=== PATIENT | female | born 1995 | race Two or more races ===

== ENCOUNTER 2024-03-13 23:30 | Emergency (ER) | payer MEDICAID, SELFPAY ==
[2024-03-13 23:31] VITALS: PULSE 94; RESP 20; O2SAT 97
[2024-03-13 23:42] VITALS: BP 116/83; PULSE 91; RESP 18; TEMP 36.6; O2SAT 99; BMI 35.7
--- NOTE | 2024-03-13 23:49 | XR_ITS ---
Examination: Abdomen sonogram, Limited Date and time of exam: March 14, 2024 0100 hours INDICATIONS: Abdominal pain beginning 3 days ago Technique: Real-time dooley scale transabdominal sonographic images of the upper abdomen obtained. Findings: Numerous gallstones Gallbladder wall 0.2 cm Common bile duct 0.2 cm Pancreatic head 3.3 cm Liver 17.1 cm no focal liver lesions Normal hepatopedal portal venous flow Patent IVC IMPRESSION: Cholelithiasis, negative for cholecystitis
--- NOTE | 2024-03-13 23:50 | PD.EDRME ---
Rapid Medical Screening Exam RME Arrival date/time: 03/13/24 23:30 28F with history of gallstones presents to ED with RUQ/epigastric pain and N/V. Patient had outpatient gen surg appt but missed it because her daughter was sick. Chief Complaint: Abdominal Pain Vital signs: Vital Signs Temperature 98 F 03/13/24 23:42 Pulse Rate 91 03/13/24 23:42 Respiratory Rate 18 03/13/24 23:42 Blood Pressure 116/83 03/13/24 23:42 Pulse Oximetry (%) 99 03/13/24 23:42 Oxygen Delivery Method Room Air 03/13/24 23:42
[2024-03-13] MEDS: ONDANSETRON ODT 4 MG TABRAP PO (23:55)
[2024-03-14 00:35] LABS: Basophils % (Auto) 0 % (0-2.5); Eosinophils # (Auto) 0.1 Thou/mm3 (0.0-0.5); Eosinophils % (Auto) 1 % (0-10); Hematocrit 35.6 % (36.0-46.0); Hemoglobin 11.8 g/dL (12.0-16.0); Immature Granulocytes % (Auto) 0 % (0-0); Immature Granulocytes Auto 0.03 Thou/mm3 (0.00-0.00); Lymphocytes # (Auto) 2.4 Thou/mm3 (1.0-4.8); Lymphocytes % (Auto) 18 % (10-50); Mean Corpuscular HGB Conc 33.1 g/dl (31.0-37.0); Mean Corpuscular Hemoglobin 27.2 pg (25.0-35.0); Mean Corpuscular Volume 82 fL (80-100); Monocytes # (Auto) 0.6 Thou/mm3 (0.0-0.8); Monocytes % (Auto) 5 % (0-12); Neutrophils # (Auto) 9.7 Thou/mm3 (1.8-7.7); Neutrophils % (Auto) 76 % (37-80); Nucleated Red Blood Cell % 0 /100 WBC (0); Platelet Count 265 Thou/mm3 (140-440); RDW Standard Deviation 44.9 fL (36.4-46.3); Red Blood Count 4.34 Miln/mm3 (4.00-5.20); White Blood Count 12.9 Thou/mm3 (3.6-11.0)
[2024-03-14 00:54] LABS: Alanine Aminotransferase 63 U/L (10-49); Albumin, Serum 4.3 gm/dL (3.5-5.0); Albumin/Globulin Ratio 1.5 (1.2-2.2); Alkaline Phosphatase 124 U/L (46-116); Anion Gap 3 (7-16); Aspartate Amino Transferase 83 U/L (0-34); BUN/Creatinine Ratio 23 Ratio (12-20); Bilirubin,Total 0.5 mg/dL (0.3-1.2); Blood Urea Nitrogen 16 mg/dL (9-23); Calcium 9.8 mg/dL (8.3-10.6); Calcium (Corrected) 9.8 mg/dL (8.5-10.1); Carbon Dioxide 30.6 mMol/L (20.0-31.0); Chloride 104 mMol/L (98-107); Creatinine (Component) 0.7 mg/dL (0.6-1.3); Estimated Creatinine Clearance 151.6 mL/min (>60); Globulin 2.9 gm/dL (2.3-3.5); Glucose 95 mg/dL (74-106); Lipase 38 U/L (12-53); Osmolality,Calculated 276 (275-295); Potassium 3.8 mMol/L (3.4-5.1); Sodium 138 mMol/L (136-145); Total Protein 7.2 gm/dL (5.7-8.2); eGFR > 60 See Note
--- NOTE | 2024-03-14 02:04 | PD.EDABDPN ---
ED Abdominal Pain RME/HPI General Chief Complaint: Abdominal Pain Stated complaint: UPPER ABDOMINAL PAIN, RIGHT SHOULDER PAIN Arrival date/time: 03/13/24 23:30 RME / HPI RME / HPI narrative: 03/13/24 23:30 28F with history of gallstones presents to ED with RUQ/epigastric pain and N/V. Patient had outpatient gen surg appt but missed it because her daughter was sick. ----- Dr. Zamudio?s Main ED Evaluation: 28yo female with a history of gallstones BIBA from home presents to the ED for complaints of right chest and epigastric pain. Patient states she was at home when she developed sudden right-sided chest pain and epigastric pain. She reports associated N/V and shortness of breath. She denies any fever, chills, UTI symptoms or any other associated symptoms. She states she's had this pain twice before. No known allergies. Patient states she had an appointment with her PCP yesterday, but missed it due to her daughter being sick. Related Data Home Medications ?Medication ?Instructions ?Recorded ?Confirmed Vitamin * 1 tab PO QDAY #0 tabs 05/24/13 04/08/22 Previous Rx's ?Medication ?Instructions ?Recorded IBU 800 mg tablet (ibuprofen) 800 mg PO Q6H PRN pain #30 tabs 01/21/24 ondansetron 4 mg disintegrating 4 mg PO Q8H PRN nausea and 01/21/24 tablet vomiting #10 tabs Allergies Allergy/AdvReac Type Severity Reaction Status Date / Time No Known Allergies Allergy Unknown Verified 01/21/24 06:47 Review of Systems Review of Systems Systems Reviewed: All systems reviewed, normal except as documented Past Medical History Past Medical History NEUROLOGIC: Negative Neurological Disorders or Seizures CARDIAC: Negative Cardiac Disorders or Congestive Heart Failure RESPIRATORY: Negative Chronic Obstructive Pulmonary Disease (COPD) GASTROINTESTINAL: Positive Gastrointestinal Disorders and Obesity; Negative Hepatitis or Colorectal Cancer GENITOURINARY: Positive Genitourinary Disorders; Negative Renal Disease or Prostate Cancer REPRODUCTIVE: Negative Breast Cancer or Testicular Cancer MUSCULOSKELETAL: Negative Musculoskeletal Disorders or Bone Cancer ENDOCRINE: Positive Endocrine Disorders (1 hour glucose elevated. A1c okay); Negative Diabetes Mellitus Type 1 or Diabetes Mellitus Type 2 HEMATOLOGIC: Positive Blood Disorders and Anemia; Negative Leukemia, Hemophilia, Thalassemia, Sickle Cell Disease or Clotting Problems PSYCHO/SOCIAL: Positive Anxiety OTHER HISTORY: Negative Hospitalization, Autoimmune Disease, Down Syndrome, Developmental Delay, Shingles, Falls, Blood Transfusions, Blood Transfusion Reaction, Anesthesia Reactions, Organ Transplant, Chemotherapy, Radiation Therapy, Hyperbaric Therapy, MRSA, VRSA, Vancomycin-Resistant Enterococci, Human Immunodeficiency Virus (HIV), Chicken Pox, Measles, Mumps, Rubella ([place]ian Measles), Pertussis, Clostridium Difficile, Breast Cancer, Cervical Cancer, Colorectal Cancer, Lung Cancer, Ovarian Cancer, Prostate Cancer or Testicular Cancer Family History FAMILY HISTORY: Positive Family Cardiac Disorders; Negative Family Psychiatric Problems, Family Respiratory Disorders, Family Gastrointestinal Problems, Family Cancer, Family Surgery or Family Anesthesia Reaction Surgical History SURGICAL: Negative Section or Organ Transplant Social History SMOKING STATUS: Never smoker ED Exam Narrative Physical exam: GENERAL APPEARANCE: alert and oriented x 4, well-developed, well-nourished, no acute distress VITALS: All vitals were reviewed and the pulse ox is 99% on room air, which is normal according to my interpretation. HEENT: Normocephalic, atraumatic; pupils equal, round, reactive to light; EOMI; mucous membranes pink, moist; oropharynx clear NECK: Supple LUNGS: CTABL; no wheezes, no rales, no rhonchi HEART: Regular rate, regular rhythm; normal S1, S2; no murmurs ABDOMEN: non distended; normal BS; soft, mild diffuse tenderness, no guarding, no rebound; no masses, no organomegaly, no hernia BACK: no CVA tenderness EXTREMITIES: atraumatic; no edema NEUROLOGIC: awake; alert and oriented x4; cranial nerves II-XII grossly intact; no focal sensory or motor deficits PSYCHIATRIC: appropriate mood and affect SKIN: warm, dry, normal color; no rashes Course Quality Measures none Orders Category Date Time Status US gall bladder Stat Exams 03/13/24 23:49 Taken CBC Stat Lab 03/13/24 23:49 Completed CMP [Comprehensive Metabolic Panel] Stat Lab 03/13/24 23:49 Completed Lipase Stat Lab 03/13/24 23:49 Completed Ondansetron Odt [Zofran Odt] Med 03/13/24 23:49 Discontinued 4 mg PO X1 ONE Vital Signs Vital signs: Vital Signs Temperature 98 F 03/13/24 23:42 Pulse Rate 91 03/13/24 23:42 Respiratory Rate 18 03/13/24 23:42 Blood Pressure 116/83 03/13/24 23:42 Pulse Oximetry (%) 99 03/13/24 23:42 Oxygen Delivery Method Room Air 03/13/24 23:42 Abdominal Pain MDM Patient data External records reviewed:: [facility] previous records (Per chart review, patient was seen here on 01/21/24 for gallstones.) Clinical information provided by:: patient Social determinants that could affect healthcare access:: none Patient has the following chronic illnesses:: gallstones How is presenting disease/condition affected by chronic disease/condition?: caused by Evaluation data The following diagnostics were reviewed and interpreted by me:: lab results and radiology exam(s) Lab and/or radiology exams considered but not ordered:: none Interpretation Summary: WBC count is elevated at 12.9, LFTs are elevated, Lipase is normal, according to my interpretation. ----- [facility] Preliminary Report Draft Patient: CHRISTIANO CONDE Record#: [id number] Birthdate: 1995 Age/Sex: 28 / F Location: [facility] Attending Dr: Ordering Physician: Date of Service: Procedure(s): Accession Number(s): cc: ~ Right upper quadrant abdominal ultrasound. March 14, 2024 at 0100 hours Clinical history: Right upper quadrant/epigastric pain. Technique: Grayscale and color flow images of the right upper quadrant are provided. Hepatic and portal veins were also imaged with color flow images. Findings: The liver is mildly enlarged, measuring 17 cm and demonstrates heterogeneous echotexture. The portal vein is patent and demonstrates hepatopetal flow. No intrahepatic biliary ductal dilatation. Multiple calculi are noted within the gallbladder, without evidence of gallbladder wall thickening or pericholecystic fluid. Sonographic London sign is negative as per the technologist's note. The common bile duct is normal in caliber at 2 mm. The pancreas is hyperechoic, which could be due to fatty infiltration. The inferior vena cava is patent. Impression: Cholelithiasis without sonographic evidence of acute cholecystitis or biliary obstruction. Mild hepatomegaly with heterogeneous echotexture of the liver, likely related to parenchymal disease. Report Electronically Signed By: Iftikhar Valdez 03/14/2024 2:39:40 AM [EST] Medications / Prescriptions Medications or Prescriptions considered but not ordered:: none Medication administrations:: Medication Administration History Discontinued Medications Ondansetron HCl (Ondansetron Odt 4 Mg Tabrap) 4 mg PO X1 ONE; Protocol Stop: 03/13/24 23:50 Last Admin: 03/13/24 23:55 Dose: 4 mg Documented By: BRENT see above Consultations Consultation(s) initiated? (list below): No Diagnosis Differential diagnosis abdominal pain: diverticulitis and other (gastritis, cholelithiasis, cholecystitis) Most likely diagnosis given after review of the tests above:: see below Admission Indicated Admission indicated?: not indicated Admission Request Was there a request for admission?: No Disposition Plan Disposition Plan: Discharge Discharge Attestation Discharge Attestation: The patient and all family members were given an opportunity to ask questions and understood the discharge instructions. Discharge instructions specifically effects, indications for sooner follow up or return to the emergency department, and the expected course of current diagnosis. Patient condition: Stable Discharge Plan Plan Patient Disposition: HOME (Self Care) Disposition Comment: Stable for discharge Patient condition on transfer: Stable Prescriptions/Referrals Prescriptions/Med Rec: No Action Vitamin * 1 EACH tablet 1 tab PO QDAY Qty: 0 ibuprofen [IBU] 800 mg tablet 800 mg PO Q6H PRN (Reason: pain) Qty: 30 0RF ondansetron 4 mg tablet,disintegrating 4 mg PO Q8H PRN (Reason: nausea and vomiting) Qty: 10 0RF Referrals: Darnell Patel MD [Primary Care Provider] - In 1 week Elizabeth David MD [Physician] - In 1 week Problem List Clinical Impression: Cholelithiasis Patient/Caregiver Discharge Instructions Discharge Activity: activity as tolerated Diet Instructions: You should avoid fatty or greasy foods for the next several days. Education Materials: What Are Gallstones, Discharge Instructions for ..., ED Gallstones with Biliary Colic Additional Instructions: You should follow-up with Dr. David in her office within the next week or so. Please give her office a call in the morning. If you have any worsening please return to the ER right away Otherwise he should follow-up with your primary care doctor within the next several days Print Language: Indonesian Stand Alone Forms: [employer] Award Info., Patient Portal Info Letter
--- NOTE | 2024-03-14 02:14 | PC.NURSE ---
Assume care for this 28 year female with chief c/o of RUQ pain that started around 2200hr's. Pt reports that she was recently diagnosed with gall stones approx 1 month ago and was told to follow up with her PMD, but was unable to due to her new baby getting sick. On assessment there is active BS to all 4 quadrants, Pt reports that she has been passing gas, and there is tenderness to the RUQ region. Pt is a GCS of 15, A&O 4, at bedside. Pt was given update on plan of care.
--- NOTE | 2024-03-14 02:40 | PRELIM_ITS ---
Right upper quadrant abdominal ultrasound. March 14, 2024 at 0100 hours Clinical history: Right up per quadrant/epigastric pain. Technique: Grayscale and color flow images of the right upper quadrant are provided. Hepatic and portal veins were also imaged with color flow images. Findings:The liver is mildly enlarged, measuring 17 cm and demonstrates heterogeneous echotexture. The portal vein is michaels nt and demonstrates hepatopetal flow. No intrahepatic biliary ductal dilatation. Multiple calculi are noted within the gallbladder, without evidence of gallbladder wall thickening or pericholecystic flu id. Sonographic London sign is negative as per the technologist's note. The common bile duct is edwige l in caliber at 2 mm. The pancreas is hyperechoic, which could be due to fatty infiltration. The infe rior vena cava is patent.Impression:Cholelithiasis without sonographic evidence of acute cholecystiti s or biliary obstruction. Mild hepatomegaly with heterogeneous echotexture of the liver, likely relat ed to parenchymal disease. Report Electronically Signed By: Iftikhar Valdez 03/14/2024 2:39:40 AM [EST]
[2024-03-14 03:52] VITALS: BP 101/64; PULSE 94; RESP 18; TEMP 36.8; O2SAT 98
== END 2024-03-14 04:05 | disposition home or self-care (01) ==
PROVIDERS: Physician Assistant; Emergency Provider Emergency Medicine; PCP Family Medicine
DX: K80.20 Calculus of gallbladder without cholecystitis without obstruction (principal)
CPT/HCPCS: 36415; 76705; 80053; 81025; 83690; 85025; 99284; Q0162

== ENCOUNTER 2024-05-06 06:04 | Emergency (ER) | payer MEDICAID, SELFPAY ==
[2024-05-06 06:06] VITALS: BMI 45.7
[2024-05-06 06:09] VITALS: BP 110/77; PULSE 85; RESP 18; TEMP 36.8; O2SAT 98
--- NOTE | 2024-05-06 06:26 | XR_ITS ---
Examination: Abdomen sonogram, Limited Date and time of exam: 25 0708 hrs. Indications: Abdominal pain beginning one year ago. History cholelithiasis Technique: Real-time dooley scale transabdominal sonographic images of the upper abdomen obtained. Findings: Multiple gallstones are, gallbladder wall 0.46 cm, no gallbladder wall edema Common bile duct 0.3 cm pericaval abdomen exam Liver 16.2 cm fatty infiltration no focal liver lesions Normal hepatopedal portal venous flow Patent IVC Impression: Cholelithiasis Gallbladder wall is thickened 0.46 cm, consider HIDA scan or MRCP to exclude cholecystitis Mild hepatomegaly fatty liver
--- NOTE | 2024-05-06 06:26 | PD.EDRME ---
Rapid Medical Screening Exam RME Arrival date/time: 05/06/24 06:04 28-year-old female with history of gallstones presents emergency department complains of upper abdominal pain right flank pain Chief Complaint: Abdominal Pain Time Seen by Provider: 05/06/24 06:22 Vital signs: Vital Signs Temperature 98.2 F 05/06/24 06:09 Pulse Rate 85 05/06/24 06:09 Respiratory Rate 18 05/06/24 06:09 Blood Pressure 110/77 05/06/24 06:09 Pulse Oximetry (%) 98 05/06/24 06:09 Oxygen Delivery Method Room Air 05/06/24 06:09
[2024-05-06] MEDS: METOCLOPRAMIDE 5 MG TABLET 10 MG PO (06:51)
[2024-05-06] MEDS: HYDROcodone/APAP 5/325 TABLET 1 TAB PO (06:52)
[2024-05-06 07:06] LABS: Basophils % (Auto) 0 % (0-2.5); Eosinophils # (Auto) 0.1 Thou/mm3 (0.0-0.5); Eosinophils % (Auto) 1 % (0-10); Hemoglobin 12.4 g/dL (12.0-16.0); Immature Granulocytes % (Auto) 0 % (0-0); Immature Granulocytes Auto 0.02 Thou/mm3 (0.00-0.00); Lymphocytes # (Auto) 2.2 Thou/mm3 (1.0-4.8); Lymphocytes % (Auto) 27 % (10-50); Mean Corpuscular HGB Conc 33.5 g/dl (31.0-37.0); Mean Corpuscular Hemoglobin 27.2 pg (25.0-35.0); Mean Corpuscular Volume 81 fL (80-100); Monocytes # (Auto) 0.6 Thou/mm3 (0.0-0.8); Monocytes % (Auto) 7 % (0-12); Neutrophils # (Auto) 5.2 Thou/mm3 (1.8-7.7); Neutrophils % (Auto) 64 % (37-80); Nucleated Red Blood Cell % 0 /100 WBC (0); Platelet Count 241 Thou/mm3 (140-440); Red Blood Count 4.56 Miln/mm3 (4.00-5.20); White Blood Count 8.1 Thou/mm3 (3.6-11.0)
[2024-05-06 07:12] LABS: Collection Type, Urine Clean Catch
--- NOTE | 2024-05-06 07:24 | PD.EDABDPN ---
ED Abdominal Pain RME/HPI General Chief Complaint: Abdominal Pain Stated complaint: FLANK PAIN Time seen by provider: 05/06/24 06:22 Arrival date/time: 05/06/24 06:04 RME / HPI RME / HPI narrative: 05/06/24 06:04 28-year-old female with history of gallstones presents emergency department complains of upper abdominal pain right flank pain DR. JONES MAIN ED EVALUATION: 28 year old female with past medical history significant for gallstones presents to the Emergency Department with complaint of right upper quadrant pain today. Pain is described as aching and rated mild to moderate in severity. No radiation reported. Patient denies any of the following: fevers, chills, nausea, vomiting, diarrhea, dysuria, or any other symptoms at this time. Related Data Home Medications ?Medication ?Instructions ?Recorded ?Confirmed No Known Home Medications 05/06/24 05/06/24 Allergies Allergy/AdvReac Type Severity Reaction Status Date / Time No Known Allergies Allergy Unknown Verified 05/06/24 07:38 Review of Systems Review of Systems Systems Reviewed: All systems reviewed, normal except as documented Narrative Review of Systems: GEN: No fever, no chills, no weight loss EYES: No discharge, no visual changes, no pain HEENT: No ear pain, no congestion, no sore throat PULM: No shortness of breath, no cough, no congestion CV: No chest pain, no dyspnea on exertion, no palpitations GI: No nausea, no vomiting, no diarrhea, + right upper quadrant pain, no constipation : No frequency, no urgency and no dysuria MUSC/SKEL: No joint pain, no back pain SKIN: No rash PSYCH: No hallucinations, no depression HEME/LYMPH: No easy bleeding or bruising tendencies NEURO: No weakness, no headache Past Medical History Past Medical History NEUROLOGIC: Negative Neurological Disorders or Seizures CARDIAC: Negative Cardiac Disorders or Congestive Heart Failure RESPIRATORY: Negative Chronic Obstructive Pulmonary Disease (COPD) GASTROINTESTINAL: Positive Gastrointestinal Disorders, Gall Bladder Disease (Gall stones) and Obesity; Negative Hepatitis or Colorectal Cancer GENITOURINARY: Positive Genitourinary Disorders (kidney stones); Negative Renal Disease or Prostate Cancer REPRODUCTIVE: Positive Previous Pregnancies; Negative Breast Cancer or Testicular Cancer MUSCULOSKELETAL: Negative Musculoskeletal Disorders or Bone Cancer ENDOCRINE: Positive Endocrine Disorders; Negative Diabetes Mellitus Type 1 or Diabetes Mellitus Type 2 HEMATOLOGIC: Positive Blood Disorders and Anemia; Negative Leukemia, Hemophilia, Thalassemia, Sickle Cell Disease or Clotting Problems PSYCHO/SOCIAL: Positive Anxiety OTHER HISTORY: Negative Hospitalization, Autoimmune Disease, Down Syndrome, Developmental Delay, Shingles, Falls, Blood Transfusions, Blood Transfusion Reaction, Anesthesia Reactions, Organ Transplant, Chemotherapy, Radiation Therapy, Hyperbaric Therapy, MRSA, VRSA, Vancomycin-Resistant Enterococci, Human Immunodeficiency Virus (HIV), Chicken Pox, Measles, Mumps, Rubella ([place]ian Measles), Pertussis, Clostridium Difficile, Breast Cancer, Cervical Cancer, Colorectal Cancer, Lung Cancer, Ovarian Cancer, Prostate Cancer or Testicular Cancer Family History FAMILY HISTORY: Positive Family Cardiac Disorders; Negative Family Psychiatric Problems, Family Respiratory Disorders, Family Gastrointestinal Problems, Family Cancer, Family Surgery or Family Anesthesia Reaction Surgical History SURGICAL: Positive Section; Negative Organ Transplant Social History SMOKING STATUS: Never smoker SUBSTANCE USE: does not use ALCOHOL: Never ED Exam Narrative Physical exam: GENERAL APPEARANCE: Well hydrated, well nourished, in no acute distress. No jaundice. VITALS: All vitals were reviewed and the pulse ox is 98% on room air which is normal according to my interpretation. HEENT: Normocephalic, atramatic, EOMI, EACs are patent. There is no bulge or retraction. Throat without erythema or exudate. Moist oromucosa. No jaundice NECK: Supple, no JVD or bruits. CARDIOVASCULAR: Heart regular without S3-S4 or murmur. No rubs or gallops. LUNGS/CHEST: Clear to auscultation bilaterally. No rales, rhonchi, or wheezing. Normal inspection. ABDOMEN: There is right upper quadrant tenderness, no rebound tenderness and no guarding. Normal bowel sounds. No pulsatile masses. No incarcerated hernia. EXTREMITIES: No edema, clubbing, or cyanosis. Intact CSM. Normal inspection and palpation. SKIN: Warm and dry without rashes. Normal inspection. MUSCULOSKELETAL: No gross deformity, full ROM all extremities. Normal inspection. NEURO: Alert and oriented x3. Cranial nerves II through XII grossly intact. There are no other motor or sensory deficits noted. PSYCHIATRIC: Normal mood and affect. No psychosis. Course Quality Measures none Orders Category Date Time Status US gall bladder Stat Exams 05/06/24 06:26 Completed CBC Stat Lab 05/06/24 06:53 Completed Comprehensive Metabolic Panel Stat Lab 05/06/24 06:53 Completed HCG Qualitative,Urine Stat Lab 05/06/24 07:02 Completed Lipase Stat Lab 05/06/24 06:53 Completed UA, C/S IF [Urinalysis, C/S if Indicated] Stat Lab 05/06/24 07:02 Completed HYDROcodone*/APAP 5/325 [Whiting 5/325] Med 05/06/24 06:26 Discontinued 1 tab PO X1 ONE Metoclopramide [Reglan] Med 05/06/24 06:26 Discontinued 10 mg PO X1 ONE Reevaluation(s) Reevaluation #1: At this time, patient is pain free. Patient remains clinically stable throughout the emergency department visit. Re-assessment at the time of disposition demonstrates that the patient is in no acute distress. We reviewed all the results, analysis, and treatment plans. Patient is amenable to discharge. Strict return precautions were outlined. Patient was discharged in stable condition. Time: 11:53 Vital Signs Vital signs: Vital Signs Temperature 98.2 F 05/06/24 06:09 Pulse Rate 85 05/06/24 06:09 Respiratory Rate 18 05/06/24 06:09 Blood Pressure 110/77 05/06/24 06:09 Pulse Oximetry (%) 98 05/06/24 06:09 Oxygen Delivery Method Room Air 05/06/24 06:09 Abdominal Pain MDM MDM Narrative MDM Narrative:: I, Dary Oh, am scribing for and in the presence of Dr. Jones. CBC unremarkable. CMP and lipase are negative. UA negative. test is negative. Ultrasound resulted. Radiologist mention gallstones and gallbladder wall slightly thickened at 0.46 cm. However clinically speaking the patient has no cholecystitis. In fact at this time which is 11:54 AM, the patient is pain-free and wants to go home. Patient data External records reviewed:: [facility] previous records (Reviewed last ED visit dated 03/14/24 discharged with the following: Cholelithiasis) Clinical information provided by:: patient Social determinants that could affect healthcare access:: none Patient has the following chronic illnesses:: gallstones How is presenting disease/condition affected by chronic disease/condition?: caused by Evaluation data The following diagnostics were reviewed and interpreted by me:: lab results and radiology exam(s) Lab and/or radiology exams considered but not ordered:: none Interpretation Summary: Procedure(s): US gall bladder Accession Number(s): [id number] cc: Myrna ([employer]CTION EXECUTIVE),[employer]; Darnell Patel MD; Shaun Valladares MD~ Examination: Abdomen sonogram, Limited Date and time of exam: 25 0708 hrs. Indications: Abdominal pain beginning one year ago. History cholelithiasis Technique: Real-time dooley scale transabdominal sonographic images of the upper abdomen obtained. Findings: Multiple gallstones are, gallbladder wall 0.46 cm, no gallbladder wall edema Common bile duct 0.3 cm pericaval abdomen exam Liver 16.2 cm fatty infiltration no focal liver lesions Normal hepatopedal portal venous flow Patent IVC Impression: Cholelithiasis Gallbladder wall is thickened 0.46 cm, consider HIDA scan or MRCP to exclude cholecystitis Mild hepatomegaly fatty liver Dictated By: Shaun Valladares MD Medications / Prescriptions Medications or Prescriptions considered but not ordered:: none Medication administrations:: Medication Administration History Discontinued Medications Hydrocodone Bitart/Acetaminophen (Hydrocodone/Apap 5/325 Tablet) 1 tab PO X1 ONE Stop: 05/06/24 06:27 Last Admin: 05/06/24 06:52 Dose: 1 tab Documented By: LACEY Metoclopramide HCl (Metoclopramide 5 Mg Tablet) 10 mg PO X1 ONE Stop: 05/06/24 06:27 Last Admin: 05/06/24 06:51 Dose: 10 mg Documented By: LACEY see above Consultations Consultation(s) initiated? (list below): No Diagnosis Differential diagnosis abdominal pain: abdominal pain, gastroenteritis and pancreatitis Most likely diagnosis given after review of the tests above:: Cholelithiasis Admission Indicated Admission indicated?: not indicated Admission Request Was there a request for admission?: No Disposition Plan Disposition Plan: Discharge Discharge Attestation Discharge Attestation: The patient and all family members were given an opportunity to ask questions and understood the discharge instructions. Discharge instructions specifically effects, indications for sooner follow up or return to the emergency department, and the expected course of current diagnosis. Patient condition: Stable Discharge Plan Plan Patient Disposition: HOME (Self Care) Disposition Comment: Stable for DC home Prescriptions/Referrals Prescriptions/Med Rec: No Action No Known Home Medications Referrals: Darnell Patel MD [Primary Care Provider] - In 1 week Problem List Clinical Impression: Abdominal pain, Cholelithiasis Patient/Caregiver Discharge Instructions Education Materials: Abdominal Pain, ED Gallstones with Biliary Colic Additional Instructions: Liquid diet for 24 hours. Avoid fatty foods. Follow-up with your medical doctor in 72 hours for recheck and further care. Return the nearest ER if condition worsens or if new symptoms develop especially fever. Print Language: Nepalese Stand Alone Forms: [employer] Award Info., Patient Portal Info Letter
[2024-05-06 07:28] LABS: Alanine Aminotransferase 19 U/L (10-49); Albumin, Serum 4.5 gm/dL (3.5-5.0); Albumin/Globulin Ratio 1.4 (1.2-2.2); Alkaline Phosphatase 103 U/L (46-116); Anion Gap 6 (7-16); Aspartate Amino Transferase 12 U/L (0-34); BUN/Creatinine Ratio 17 Ratio (12-20); Bilirubin,Total 0.3 mg/dL (0.3-1.2); Blood Urea Nitrogen 12 mg/dL (9-23); Calcium 9.4 mg/dL (8.3-10.6); Calcium (Corrected) 9.4 mg/dL (8.5-10.1); Carbon Dioxide 27.8 mMol/L (20.0-31.0); Chloride 102 mMol/L (98-107); Creatinine (Component) 0.7 mg/dL (0.6-1.3); Estimated Creatinine Clearance 141.2 mL/min (>60); Globulin 3.2 gm/dL (2.3-3.5); Glucose 77 mg/dL (74-106); Lipase 33 U/L (12-53); Osmolality,Calculated 270 (275-295); Sodium 136 mMol/L (136-145); Total Protein 7.7 gm/dL (5.7-8.2); eGFR > 60 See Note
[2024-05-06 07:31] VITALS: BP 114/67; PULSE 86; RESP 18; TEMP 37.1; O2SAT 100
[2024-05-06 07:51] LABS: Bacteria,Urine Rare; Bilirubin,Urine Negative (Negative); Blood,Urine Trace (Negative); Clarity,Urine Hazy (Clear/Hazy); Color,Urine Lt-Yellow (Lt Yel-Yel); Culture Indicated,Urine Not Indicated; Glucose, Urine Negative (Negative); Ketones,Urine Negative (Negative); Nitrite,Urine Negative (Negative); Protein,Urine Trace (Neg - Trace); RBC,Urine 3 /hpf (0-3); Specific Gravity,Urine 1.024 (1.001-1.035); Squamous Epithelial Cell,Urine 25 /hpf (0-5); Urobilinogen,Urine Negative mg/dL (0.0-1.0); WBC,Urine 2 /hpf (0-5)
[2024-05-06 07:52] LABS: HCG Qualitative,Urine Negative; Leukocyte Esterase,Urine Trace (Negative)
[2024-05-06 09:34] VITALS: BP 108/74; PULSE 67; RESP 18; TEMP 36.6; O2SAT 100
== END 2024-05-06 12:10 | disposition home or self-care (01) ==
PROVIDERS: Nurse Practitioner Primary Care; Emergency Provider Emergency Medicine; PCP Family Medicine
DX: K80.20 Calculus of gallbladder without cholecystitis without obstruction (principal)
CPT/HCPCS: 36415; 76705; 80053; 81001; 81025; 83690; 85025; 99284; A9270

== ENCOUNTER 2024-06-02 09:28 | Emergency (ER) | payer MEDICAID, SELFPAY ==
[2024-06-02 09:39] VITALS: BP 111/74; PULSE 81; RESP 20; TEMP 36.8; O2SAT 100; BMI 42.5
--- NOTE | 2024-06-02 09:49 | XR_ITS ---
Examination: Abdomen sonogram, Limited Date and time of exam: June 02, 2024 1038 hrs. Indications: Onset abdominal pain today Technique: Real-time dooley scale transabdominal sonographic images of the upper abdomen obtained. Findings: Multiple gallstones Normal gallbladder wall Normal common bile duct 0.3 cm Pancreatic head 2.8 cm Liver 16.7 cm fatty infiltration no focal liver lesions Normal hepatopedal portal venous oh Patent IVC Impression: Cholelithiasis, negative for cholecystitis Fatty liver
--- NOTE | 2024-06-02 09:52 | EDRME_ITS ---
Rapid Medical Screening Exam RME Arrival date/time: 06/02/24 09:28 This is a 29-year-old female that comes in with complaints of epigastric pain. Patient has been diagnosed with gallstones in the past. Patient states it hurts like the gallstone pain did. Patient supposed to have them removed by a surgeon soon. Patient denies any past medical history. I have greeted and performed a focused initial assessment of this patient. Initial appropriate labs ordered at this time. A comprehensive ED assessment an d evaluation of the patient and analysis of all test and completion of medical decision making process will be conducted by additional ED provider. Chief Complaint: Abdominal Pain Time Seen by Provider: 06/02/24 09:40 Vital signs: Vital Signs Temperature 98.3 F 06/02/24 09:39 Pulse Rate 81 06/02/24 09:39 Respiratory Rate 20 06/02/24 09:39 Blood Pressure 111/74 06/02/24 09:39 Pulse Oximetry (%) 100 06/02/24 09:39 Oxygen Delivery Method Room Air 06/02/24 09:39
[2024-06-02 10:01] LABS: Collection Type, Urine Voided
[2024-06-02 10:06] LABS: Basophils % (Auto) 0 % (0-2.5); Eosinophils # (Auto) 0.1 Thou/mm3 (0.0-0.5); Eosinophils % (Auto) 1 % (0-10); Hematocrit 37.3 % (36.0-46.0); Hemoglobin 12.5 g/dL (12.0-16.0); Immature Granulocytes % (Auto) 0 % (0-0); Immature Granulocytes Auto 0.03 Thou/mm3 (0.00-0.00); Lymphocytes # (Auto) 2.8 Thou/mm3 (1.0-4.8); Lymphocytes % (Auto) 30 % (10-50); Mean Corpuscular HGB Conc 33.5 g/dl (31.0-37.0); Mean Corpuscular Hemoglobin 27.7 pg (25.0-35.0); Mean Corpuscular Volume 83 fL (80-100); Monocytes # (Auto) 0.5 Thou/mm3 (0.0-0.8); Monocytes % (Auto) 5 % (0-12); Neutrophils % (Auto) 63 % (37-80); Nucleated Red Blood Cell % 0 /100 WBC (0); Platelet Count 226 Thou/mm3 (140-440); RDW Standard Deviation 43.3 fL (36.4-46.3); Red Blood Count 4.52 Miln/mm3 (4.00-5.20); White Blood Count 9.5 Thou/mm3 (3.6-11.0)
[2024-06-02 10:19] LABS: Alanine Aminotransferase 23 U/L (10-49); Albumin, Serum 4.3 gm/dL (3.5-5.0); Albumin/Globulin Ratio 1.4 (1.2-2.2); Alkaline Phosphatase 111 U/L (46-116); Anion Gap 6 (7-16); Aspartate Amino Transferase 24 U/L (0-34); BUN/Creatinine Ratio 22 Ratio (12-20); Bilirubin,Total 0.5 mg/dL (0.3-1.2); Blood Urea Nitrogen 13 mg/dL (9-23); Calcium 9.2 mg/dL (8.3-10.6); Calcium (Corrected) 9.2 mg/dL (8.5-10.1); Carbon Dioxide 27.7 mMol/L (20.0-31.0); Chloride 106 mMol/L (98-107); Creatinine (Component) 0.6 mg/dL (0.6-1.3); Estimated Creatinine Clearance 156.3 mL/min (>60); Glucose 86 mg/dL (74-106); Lipase 35 U/L (12-53); Osmolality,Calculated 278 (275-295); Potassium 3.5 mMol/L (3.4-5.1); Sodium 140 mMol/L (136-145); Total Protein 7.3 gm/dL (5.7-8.2); eGFR > 60 See Note
[2024-06-02 10:31] LABS: HCG Qualitative,Urine Negative
[2024-06-02 11:02] LABS: Bacteria,Urine Rare; Bilirubin,Urine Negative (Negative); Blood,Urine 1+ (Negative); Clarity,Urine Turbid (Clear/Hazy); Color,Urine Yellow (Lt Yel-Yel); Culture Indicated,Urine Not Indicated; Glucose, Urine Negative (Negative); Ketones,Urine Negative (Negative); Leukocyte Esterase,Urine Negative (Negative); Nitrite,Urine Negative (Negative); Protein,Urine Trace (Neg - Trace); RBC,Urine 5 /hpf (0-3); Specific Gravity,Urine 1.035 (1.001-1.035); Squamous Epithelial Cell,Urine 11 /hpf (0-5); Urobilinogen,Urine Negative mg/dL (0.0-1.0); WBC,Urine 2 /hpf (0-5)
--- NOTE | 2024-06-02 12:53 | PRELIM_ITS ---
Limited ultrasound abdomen. June 02, 2024 1048 hours Clinical history: Gallstones Technique: Grayscale and color flow images of the abdomen are provided. Hepatic and portal veins were also imaged with color flow images. Comparison: March 14, 2024 Findings: There is mild fatty infiltration of the liver. No intrahepatic biliary ductal dilatation. The main portal vein and hepatic veins are patent. There are multiple small gallbladder calculi without wall thickening or pericholecystic fluid is demonstrated. The common bile duct is normal in caliber at 3 mm. No free fluid is demonstrated on the submitted images. The pancreas is unremarkable to the extent visualized. Impression: Cholelithiasis without evidence of acute cholecystitis or biliary obstruction. Report Electronically Signed By: Doug Vanegas 06/02/2024 12:52:38 PM [EST]
--- NOTE | 2024-06-02 13:17 | PD.EDABDPN ---
ED Abdominal Pain RME/HPI General Chief Complaint: Abdominal Pain Stated complaint: PAIN FROM GALLSTONES Time seen by provider: 06/02/24 09:40 Arrival date/time: 06/02/24 09:28 RME / HPI RME / HPI narrative: 29-year-old female with no significant medical history except for gallstone that comes in with complaints of epigastric pain. Patient has been diagnosed with gallstones in the past. Patient states it hurts like the gallstone pain did. Described as a sharp pain, severity moderate. Patient supposed to have them removed by a surgeon soon. Denies any fever denies any vomiting. Related Data Previous Rx's ?Medication ?Instructions ?Recorded tramadol 37.5 mg-acetaminophen 325 1 tab PO Q8H PRN pain #15 tabs 06/02/24 mg tablet Allergies Allergy/AdvReac Type Severity Reaction Status Date / Time No Known Allergies Allergy Unknown Verified 06/02/24 09:32 Review of Systems Review of Systems Narrative Review of Systems: Review of system reviewed and within normal limits except mentioned in HPI ED Exam Narrative Physical exam: VITAL SIGNS: Reviewed. GENERAL APPEARANCE: Alert and interactive, follows commands, no acute distress, HEAD AND FACE: Non-traumatic. ENT: PERRL, pink conjunctivitis, eyelid no trauma, Mucous membrane moist. NECK: Supple, nontender, no nuchal rigidity. CHEST: No tenderness, no crepitus, no paradoxical movement, no retractions. LUNGS: Clear, well ventilated, symmetric, no rales, no wheezing, no ronchi, no stridor, good breath sounds bilaterally. HEART: Regular rate, regular rhythm, no murmur, no gallops. ABDOMEN: Soft, positive bowel sounds, nondistended, no guarding, epigastric tenderness, no rebound, no masses, RECTAL: Deferred. GENITAL: Deferred. NEUROLOGICAL: Gross motor function intact sensory function intact, Appropriate for age. MUSCULOSKELETAL: low back nontender, full range of motion. EXTREMITIES: Nontender, full range of motion. SKIN: Color pink, dry, no rash, no lacerations, no abrasions, no contusions. LYMPHATICS: Deferred. Course Quality Measures none Orders Category Date Time Status US abdomen limited Stat Exams 06/02/24 09:49 Completed CBC Stat Lab 06/02/24 09:55 Completed Comprehensive Metabolic Panel Stat Lab 06/02/24 09:55 Completed HCG Qualitative,Urine Stat Lab 06/02/24 09:51 Completed Lipase Stat Lab 06/02/24 09:55 Completed Urinalysis, C/S if Indicated Stat Lab 06/02/24 09:51 Completed Vital Signs Vital signs: Vital Signs Temperature 98.3 F 06/02/24 09:39 Pulse Rate 81 06/02/24 09:39 Respiratory Rate 20 06/02/24 09:39 Blood Pressure 111/74 06/02/24 09:39 Pulse Oximetry (%) 100 06/02/24 09:39 Oxygen Delivery Method Room Air 06/02/24 09:39 Abdominal Pain MDM MDM Narrative MDM Narrative:: 29-year-old female with no significant medical history except for gallstone that comes in with complaints of epigastric pain. Patient has been diagnosed with gallstones in the past. Patient states it hurts like the gallstone pain did. Described as a sharp pain, severity moderate. Patient supposed to have them removed by a surgeon soon. Denies any fever denies any vomiting. Patient's workup today all came back unremarkable including no leukocytosis total bili is normal LFTs are normal. Ultrasound of the gallbladder showed multiple gallstones with no sign of acute cholecystitis. Results was discussed with the patient since patient eloped from the emergency room Patient data External records reviewed:: None Clinical information provided by:: patient Social determinants that could affect healthcare access:: none Patient has the following chronic illnesses:: None How is presenting disease/condition affected by chronic disease/condition?: no chronic disease Evaluation data The following diagnostics were reviewed and interpreted by me:: lab results and radiology exam(s) Lab and/or radiology exams considered but not ordered:: Elopement Interpretation Summary: His workup all came back unremarkable. No leukocytosis LFTs are normal ultrasound gallbladder showed cholelithiasis with no sign of acute cholecystitis Medications / Prescriptions Medications or Prescriptions considered but not ordered:: None Medication administrations:: None Consultations Consultation(s) initiated? (list below): No Diagnosis Differential diagnosis abdominal pain: abdominal pain and pancreatitis Most likely diagnosis given after review of the tests above:: Gallstone Admission Indicated Admission indicated?: not indicated Explain why admission is indicated or not indicated:: None Admission Request Was there a request for admission?: No Disposition Plan Disposition Plan: other (specify) (Elopement) Discharge Plan Plan Patient Disposition: Elopement Disposition Comment: FROM LOBBY Prescriptions/Referrals Prescriptions/Med Rec: No Action tramadol-acetaminophen 37.5-325 mg tablet 1 tab PO Q8H PRN (Reason: pain) Qty: 15 0RF Referrals: Darnell Patel MD [Primary Care Provider] - In 1 week Problem List Clinical Impression: Cholelithiasis Patient/Caregiver Discharge Instructions Print Language: Malaysian
== END 2024-06-02 17:20 | disposition left against medical advice (07) ==
LOC: SERX 10:04
PROVIDERS: Nurse Practitioner Family; Emergency Provider Emergency Medicine; PCP Family Medicine
DX: K80.20 Calculus of gallbladder without cholecystitis without obstruction (principal); Z53.29 Procedure and treatment not carried out because of patient's decision for other reasons
CPT/HCPCS: 36415; 76705; 80053; 81001; 81025; 83690; 85025; 99281

== ENCOUNTER 2024-06-02 17:29 | Emergency (ER) | payer MEDICAID, SELFPAY ==
[2024-06-02 17:45] VITALS: BP 108/74; PULSE 82; RESP 19; TEMP 37.1; O2SAT 99; BMI 40.0
--- NOTE | 2024-06-02 18:29 | EDNOTE_ITS ---
ED Abdominal Pain RME/HPI General Chief Complaint: Abdominal Pain Stated complaint: ABD PAIN (HERE EARLIER ELOPED FROM [facility]) Time seen by provider: 06/02/24 18:14 Arrival date/time: 06/02/24 17:29 29-year-old female who was evaluated this morning but eloped is returning with complaints of worsening abdominal pain. Patient was found to have cholelithiasis without cholecystitis and she denies fever chills shortness of breath chest pain nausea vomiting weakness or fatigue. Patient also denies taking any medications for symptoms and denies chance of Limitations: no limitations Related Data Previous Rx's ?Medication ?Instructions ?Recorded tramadol 37.5 mg-acetaminophen 325 1 tab PO Q8H PRN pa in #15 tabs 06/02/24 mg tablet Allergies Allergy/AdvReac Type Severity Reaction Status Date / Time No Known Allergies Allergy Unknown Verified 06/02/24 09:32 Review of Systems Constitutional Constitutional: Denies chills, Denies fever(s) and Denies headache(s) ENT Ears, Nose, Mouth, and Throat: Denies headache(s) Cardiovascular Cardiovascular: Denies chest pain, Denies dyspnea and Denies syncope Respiratory Respiratory: Denies cough and Denies dyspnea Gastrointestinal Gastrointestinal: Reports abdominal pain, Denies loose stools, Denies melena and Denies vomiting Genitourinary Genitourinary: Denies abnormal menses and Denies dysuria Musculoskeletal Musculoskeletal: Denies back pain and Denies myalgias Integumentary/Breasts Skin/Breast: Denies rash and Denies wounds Neurologic Neurologic: Denies headache(s) and Denies syncope Hematologic/Lymphatic Hematologic/Lymphatic: Denies easy bleeding and Denies easy bruising Past Medical History Past Medical History NEUROLOGIC: Negative Neurological Disorders or Seizures CARDIAC: Negative Cardiac Disorders or Congestive Heart Failure RESPIRATORY: Negative Chronic Obstructive Pulmonary Disease (COPD) GASTROINTESTINAL: Positive Gastrointestinal Disorders, Gall Bladder Disease (Gall stones) and Obesity; Negative Hepatitis or Colorectal Cancer GENITOURINARY: Positive Genitourinary Disorders (kidney stones); Negative Renal Disease or Prostate Cancer REPRODUCTIVE: Positive Previous Pregnancies; Negative Breast Cancer or Testicular Cancer MUSCULOSKELETAL: Negative Musculoskeletal Disorders or Bone Cancer ENDOCRINE: Positive Endocrine Disorders; Negative Diabetes Mellitus Type 1 or Diabetes Mellitus Type 2 HEMATOLOGIC: Positive Blood Disorders and Anemia; Negative Leukemia, Hemophilia, Thalassemia, Sickle Cell Disease or Clotting Problems PSYCHO/SOCIAL: Positive Anxiety OTHER HISTORY: Negative Hospitalization, Autoimmune Disease, Down Syndrome, Developmental Delay, Shingles, Falls, Blood Transfusions, Blood Transfusion Reaction, Anesthesia Reactions, Organ Transplant, Chemotherapy, Radiation Therapy, Hyperbaric Therapy, MRSA, VRSA, Vancomycin-Resistant Enterococci, Human Immunodeficiency Virus (HIV), Chicken Pox, Measles, Mumps, Rubella ([place] Measles), Pertussis, Clostridium Difficile, Breast Cancer, Cervical Cancer, [place] rectal Cancer, Lung Cancer, Ovarian Cancer, Prostate Cancer or Testicular Cancer Family History FAMILY HISTORY: Positive Family Cardiac Disorders; Negative Family Psychiatric Problems, Family Respiratory Disorders, Family Gastrointestinal Problems, Family Cancer, Family Surgery or Family Anesthesia Reaction Surgical History SURGICAL: Positive Section; Negative Organ Transplant Social History SMOKING STATUS: Never smoker SUBSTANCE USE: does not use ED Exam General Limitations: Present no limitations General appearance: Present alert and in no apparent distress Chest Chest inspection: Present normal inspection and symmetric chest wall rise Respiratory Respiratory exam: Present normal lung sounds bilaterally Cardiovascular Cardiovascular exam: Present regular rate, normal rhythm and normal heart sounds Abdominal Exam Abdominal exam: Present soft, tenderness and normal bowel sounds; Absent guarding, rebound or rigidity Abdominal tenderness: Present RUQ and epigastrium Extremities Exam Extremities exam: Present normal inspection and full ROM Back Exam Back exam: Present normal inspection and full ROM Neurological Exam Neurological exam: Present alert, oriented X3 and CN II-XII intact Psychiatric Psychiatric exam: Present normal affect and normal mood Skin Skin exam: Present warm, dry, intact and normal color Course Quality Measures none Orders Category Date Time Status Ketorolac Inj [Toradol Inj] Med 06/02/24 18:29 Once 30 mg IM X1 ONE Vital Signs Vital signs: Vital Signs Temperature 98.7 F 06/02/24 17:45 Pulse Rate 82 06/02/24 17:45 Respiratory Rate 19 06/02/24 17:45 Blood Pressure 108/74 06/02/24 17:45 Pulse Oximetry (%) 99 06/02/24 17:45 Oxygen Delivery Method Room Air 06/02/24 17:45 Abdominal Pain MDM Patient data External records reviewed:: None Clinical information provided by:: patient Social determinants that could affect healthcare access:: none Patient has the following chronic illnesses:: none How is presenting disease/condition affected by chronic disease/condition?: no chronic disease Evaluation data The following diagnostics were reviewed and interpreted by me:: lab results and radiology exam(s) Lab and/or radiology exams considered but not ordered:: none Interpretation Summary: Cholelithiasis without cholecystitis Medications / Prescriptions Medications or Prescriptions considered but not ordered:: None Medication administrations:: Toradol Consultations Consultation(s) initiated? (list below): No Diagnosis Differential diagnosis abdominal pain: abdominal pain, acute appendicitis, diverticulitis and gastroenteritis Most likely diagnosis given after review of the tests above:: Cholelithiasis Admission Indicated Admission indicated?: not indicated Admission Request Was there a request for admission?: No Disposition Plan Disposition Plan: Discharge Discharge Attestation Discharge Attestation: The patient and all family members were given an opportunity to ask questions and understood the discharge instructions. Discharge instructions specifically effects, indications for sooner follow up or return to the emergency department, and the expected course of current diagnosis. Patient condition: Stable Discharge Plan Plan Patient Disposition: HOME (Self Care) Prescriptions/Referrals Prescriptions/Med Rec: New tramadol-acetaminophen 37.5-325 mg tablet 1 tab PO Q8H PRN (Reason: pain) Qty: 15 0RF Problem List Clinical Impression: Cholelithiasis Patient/Caregiver Discharge Instructions Discharge Activity: activity as tolerated Education Materials: What Are Gallstones, Treating Gallstones Additional Instructions: Hydrate well take medication as needed for pain follow-up with your primary care provider in 24 to 48 hours for referral to surgeon. Return to the emergency department if symptoms should worsen Print Language: Romansh Stand Alone Forms: [facility] Award Info., Patient Portal Info Letter
[2024-06-02] MEDS: KETOROLAC INJ 60 MG/2 ML VIAL 30 MG IM (19:28)
== END 2024-06-02 20:27 | disposition home or self-care (01) ==
LOC: SERX 19:43
PROVIDERS: Emergency Provider Emergency Medicine; PCP Family Medicine
DX: K80.20 Calculus of gallbladder without cholecystitis without obstruction (principal)
CPT/HCPCS: 96372; 99283; J1885

== ENCOUNTER 2024-06-12 08:25 | Day surgery (SDC) | payer MEDICAID, SELFPAY ==
[2024-06-11 09:52] VITALS: BMI 43.0
[2024-06-11 11:32] LABS: Basophils % (Auto) 0 % (0-2.5); Eosinophils # (Auto) 0.1 Thou/mm3 (0.0-0.5); Eosinophils % (Auto) 1 % (0-10); Hematocrit 37.7 % (36.0-46.0); Hemoglobin 12.7 g/dL (12.0-16.0); Immature Granulocytes % (Auto) 0 % (0-0); Immature Granulocytes Auto 0.02 Thou/mm3 (0.00-0.00); Lymphocytes # (Auto) 2.7 Thou/mm3 (1.0-4.8); Lymphocytes % (Auto) 29 % (10-50); Mean Corpuscular HGB Conc 33.7 g/dl (31.0-37.0); Mean Corpuscular Volume 83 fL (80-100); Monocytes # (Auto) 0.4 Thou/mm3 (0.0-0.8); Monocytes % (Auto) 5 % (0-12); Neutrophils # (Auto) 5.9 Thou/mm3 (1.8-7.7); Neutrophils % (Auto) 65 % (37-80); Nucleated Red Blood Cell % 0 /100 WBC (0); Platelet Count 313 Thou/mm3 (140-440); RDW Standard Deviation 44.2 fL (36.4-46.3); Red Blood Count 4.54 Miln/mm3 (4.00-5.20); White Blood Count 9.2 Thou/mm3 (3.6-11.0)
[2024-06-11 12:05] LABS: HCG,Qualitative Serum Negative
[2024-06-11 13:45] LABS: Alanine Aminotransferase 78 U/L (10-49); Albumin, Serum 4.2 gm/dL (3.5-5.0); Albumin/Globulin Ratio 1.4 (1.2-2.2); Alkaline Phosphatase 130 U/L (46-116); Anion Gap 7 (7-16); Aspartate Amino Transferase 22 U/L (0-34); BUN/Creatinine Ratio 13 Ratio (12-20); Bilirubin,Total 0.5 mg/dL (0.3-1.2); Blood Urea Nitrogen 9 mg/dL (9-23); Calcium 9.1 mg/dL (8.3-10.6); Calcium (Corrected) 9.1 mg/dL (8.5-10.1); Carbon Dioxide 26.6 mMol/L (20.0-31.0); Chloride 105 mMol/L (98-107); Creatinine (Component) 0.7 mg/dL (0.6-1.3); Estimated Creatinine Clearance 134.9 mL/min (>60); Glucose 81 mg/dL (74-106); Osmolality,Calculated 275 (275-295); Potassium 3.9 mMol/L (3.4-5.1); Sodium 139 mMol/L (136-145); Total Protein 7.2 gm/dL (5.7-8.2); eGFR > 60 See Note
--- NOTE | 2024-06-11 14:54 | SUR.PREOP ---
Pt notified to come in at 1030 for surgery tomorrow.
[2024-06-12] VITALS (8 sets, daily range): BP systolic 98–124; BP diastolic 61–85; PULSE 60–91; RESP 12–20; TEMP 36.2–36.9; O2SAT 95–100; BMI 42.6
--- NOTE | 2024-06-12 11:35 | SUR.PHASEI ---
Pt. arrived to recovery via gurney, eyes closed, responds to verbal commands, VSS, no c/o pain or nausea at this time, lung sounds clear, equal expansion rosales., pt. receiving 4 liters 02 via NC, lap sites x4 to abd., dermabond intact, no redness or active bleeding noted. Report received from Disha SOLANO, Kori SOLANO and Dr. Smith.
--- NOTE | 2024-06-12 11:37 | PD.SUROPNT ---
Date of Procedure 06/12/24 Pre Op Diagnosis Symptomatic cholelithiasis Post Op Diagnosis Cholelithiasis with cholecystitis Procedure Laparoscopic cholecystectomy Findings Moderately distended gallbladder with gallstones and chronic cholecystitis Procedure Description Patient was brought into the operating room in supine position. After administration of general endotracheal anesthesia abdomen was prepped and draped in standard surgical manner. A Veress needle was inserted through the umbilicus and pneumoperitoneum was obtained up to 15 mmHg. The Veress needle was then removed, a 5 mm infraumbilical incision was made and the 5mm trocar was inserted. Laparoscopic camera was placed. Under direct visualization a laparoscopic camera a 10 mm trocar was placed in subxiphoid and two 5 mm trocars placed in right upper quadrant. The gallbladder was identified and was noted to be moderately distended with gallstones and chronic cholecystitis. It was retracted cephalad and laterally. Dissection started near the infundibulum of gallbladder where cystic duct and gallbladder junction clearly identified. The cystic duct was circumferentially dissected off the peritoneum and surrounding inflammatory tissue. The critical view of safety was clearly demonstrated. Cystic duct was then divided between 2 endoclips proximally and one distally. The cystic artery was similarly dissected and divided. The gallbladder was then from the liver bed using electrocautery. The gallbladder was then placed inside an Endo Catch and removed from the abdomen utilizing subxiphoid trocar site. The area was copiously and thoroughly washed and irrigated, all the fluid was suctioned and the suction fluid returned clear. Hemostasis achieved using electrocautery. Endoclips noted be in place and intact without any bleeding or any leakage. Hemostasis was adequate and satisfactory. The subxiphoid trocar sites fascial defect was closed with 0 Vicryl using Endo Closure device. Instruments and trocars removed, pneumoperitoneum was evacuated and the incisions closed with 4-0 Monocryl in subcuticular fashion. Instrument needle and sponge counts were all reported to be correct X2. Patient tolerated the procedure well, was extubated, breathing spontaneously and without difficulty and was transferred to postanesthesia care in stable condition. Anesthesia GETA and local Pathology / specimen Other (Gallbladder and contents) Estimated Blood Loss 10 Condition Stable Disposition PACU Surgeon Huang Reed MD Surgical Staff Operation Date: 06/12/24 12:45 Case Staff Anesthesiologist: Iftikhar Smith RNagricultural engineering teacher: Anna Larry
--- NOTE | 2024-06-12 11:57 | SUR.PHASEII ---
1157 Report received from Janeth Guillaume RN, patient lay in bed awake, breathing unlabored, vital signs stable, denies pain, dressing intact to abdomen; dermabond, no bleeding noted, denies nausea.
--- NOTE | 2024-06-12 12:54 | SUR.PHASEII ---
1254 Patient meets discharge criteria from recovery, awake and alert, breathing unlabored, vital signs stable, denies pain at rest, pain with movement, dressing intact; no bleeding noted, patient drinking apple juice; tolerating well, denies nausea, patient assisted with dressing into her clothing by her , discharge instructions given in oral and written instructions to patient and patient with the assistance of the telephone hand i tube bender Aide ID#[id number] with teach-back approach used, both patient and her receptive, discharge instructions signed by patients . Patient given all her belongings prior to discharge, transported via wheelchair able to ambulate with steady gait for wheelchair to car, and left in a private vehicle.
== END 2024-06-12 12:54 | disposition home or self-care (01) ==
PROVIDERS: PCP Family Medicine; Referring Provider Surgery; Visit Provider Surgery
PROC: 0FT44ZZ Resection of Gallbladder, Percutaneous Endoscopic Approach (ICD-10-PCS; CPT 47562; principal; 2024-06-12 12:30)
DX: K80.10 Calculus of gallbladder with chronic cholecystitis without obstruction (principal)
CPT/HCPCS: 47562; 36415; 80053; 84703; 85025; A4217; A4649; J0131; J0694; J1100; J2371; J2405; J2704; J3010; J3490; A9270; J1596

== ENCOUNTER 2024-06-14 19:26 | Emergency (ER) | payer MEDICAID, SELFPAY ==
[2024-06-14 19:28] VITALS: BMI 42.4
[2024-06-14 19:36] VITALS: BP 116/78; PULSE 80; RESP 19; TEMP 36.8; O2SAT 100
--- NOTE | 2024-06-14 20:25 | EDNOTE_ITS ---
Upper Extremity Injury RME/HPI General Chief Complaint: Extremity Injury, Upper Stated Complaint: RT ARM/ABD PAIN Time Seen by Provider: 06/14/24 20:11 Source: patient Arrival date/time: 06/14/24 19:26 This is a 29-year-old female who presents to the emergency department with complaints of right upper shoulder pain with deep inspiration. She reports she had surgery on Tuesday and since then she has been having this pain. She was told she was going to experience pain due to the postop air used during surgery. However states the pain has not improved with the [place] prompting her ED visit today. She denies fever, chills no nausea no emesis no chest pain. Mode of arrival: ambulatory Limitations: no limitations Related Data Previous Rx's ?Medication ?Instructions ?Recorded docusate sodium 100 mg capsule 100 mg PO BID #30 caps 06/12/24 (Colace) hydrocodone 5 mg-acetaminophen 325 1 tab PO Q6H PRN pa in (scale score 06/12/24 mg tablet 7-10) #15 tabs ibuprofen 600 mg tablet 600 mg PO Q8H PRN pain (scal e 06/12/24 score 4-6) #15 tabs Allergies Allergy/AdvReac Type Severity Reaction Status Date / Time No Known Allergies Allergy Unknown Verified 06/11/24 09:51 Review of Systems Review of Systems Systems Reviewed: All systems reviewed, normal except as documented Narrative Review of Systems: Gen: No fever, no chills, no weight loss EYES: No discharge, no visual changes, no pain HEENT: No ear pain, no congestion, no sore throat PULM: No shortness of breath, no cough, no congestion CV: No chest pain, no dyspnea on exertion, no palpitations GI: No nausea, no vomiting, no diarrhea, no pain, no constipation : No frequency, no urgency,? no dysuria Musc/skel:, no back pain right upper shoulder pain Skin: No rash? ED Exam General Limitations: Present no limitations General appearance: Present alert and in no apparent distress Head Head exam: Present atraumatic Eye Eye exam: Present normal appearance, PERRL and EOMI ENT ENT exam: Present normal exam, normal oropharynx and mucous membranes moist Neck Neck exam: Present normal inspection, full ROM and trachea midline Chest Chest inspection: Present normal inspection and symmetric chest wall rise Respiratory Respiratory exam: Present normal lung sounds bilaterally Cardiovascular Cardiovascular exam: Present regular rate, normal rhythm and normal heart sounds Abdominal Exam Abdominal exam: Present soft and normal bowel sounds Extremities Exam Extremities exam: Present full ROM Back Exam Back exam: Present normal inspection and full ROM Neurological Exam Neurological exam: Present alert, oriented X3 and CN II-XII intact Psychiatric Psychiatric exam: Present normal affect and normal mood Skin Skin exam: Present warm, dry, intact and normal color Course Quality Measures none Orders Category Date Time Status XR chest 2V Stat Exams 06/14/24 20:23 Completed CYCLObenzaPRINE [Flexeril] Med 06/14/24 20:23 Discontinued 5 mg PO X1 ONE HYDROcodone*/APAP 5/325 [[place] 5/325] Med 06/14/24 20:23 Discontinued 1 tab PO X1 ONE Vital Signs Vital signs: Vital Signs Temperature 98.3 F 06/14/24 19:36 Pulse Rate 80 06/14/24 19:36 Respiratory Rate 19 06/14/24 19:36 Blood Pressure 116/78 06/14/24 19:36 Pulse Oximetry (%) 100 06/14/24 19:36 Oxygen Delivery Method Room Air 06/14/24 19:36 Extremity Injury MDM Narrative MDM Narrative:: 29-year-old female status postcholecystectomy on 2024 presented with complaints of right shoulder pain with deep inspiration. X-ray was completed which demonstrates air in the below diaphragm, which is consistent of postsurgical. Patient's vital signs stable no hypoxemia, no chest pain or abdominal pain. Patient was given a Flexeril and pain medication while in the ED relieving some of her symptoms. I did advise the patient this is a very common postsurgical shoulder pain which is due to the CO2 gas that is inserted during surgery. I did advise the patient that this can last up to 72 hours. Advised patient that if it does not relieve or improve to return for further evaluation. Otherwise can follow-up with her PCP return to the emergency department Patient data External records reviewed:: [facility] previous records Clinical information provided by:: patient Social determinants that could affect healthcare access:: none Patient has the following chronic illnesses:: no How is presenting disease/condition affected by chronic disease/condition?: no chronic disease Evaluation data The following diagnostics were reviewed and interpreted by me:: other (specify) Lab and/or radiology exams considered but not ordered:: No Interpretation Summary: Attending Dr: Ordering Physician: Benito [facility]KA[facility] Pope Date of Service: 06/14/24 Procedure(s): XR chest 2V Accession Number(s): [id number] cc: Darnell Patel MD; Shaun Valladares MD; Benito WanKA[facility]ENTER[facility]ia Pope~ Examination: PA lateral chest 2 views Technique: Upright PA lateral chest 2 views Exam date and time: June 14, 2024 204 hrs. Indications: Shoulder pain post surgery 3 days ago. Findings: Large amounts of free air beneath the hemidiaphragms Normal heart size No pneumonia The osseous structures appear intact Impression: Large amounts of free air beneath the hemidiaphragms No lobar pneumonia Medications / Prescriptions Medications or Prescriptions considered but not ordered:: no Medication administrations:: Medication Administration History Discontinued Medications Hydrocodone Bitart/Acetaminophen (Hydrocodone/Apap 5/325 Tablet) 1 tab PO X1 ONE Stop: 06/14/24 20:24 Last Admin: 06/14/24 20:45 Dose: 1 tab Documented By: ORIN Cyclobenzaprine HCl (Cyclobenzaprine 5 Mg Tablet) 5 mg PO X1 ONE Stop: 06/14/24 20:24 Last Admin: 06/14/24 20:44 Dose: 5 mg Documented By: All medications administered and effective Consultations Consultation(s) initiated? (list below): No Diagnosis Upper Extremity Injury Differential Diagnosis: other (Pneumonia, costochondritis, postop pain) Most likely diagnosis given after review of the tests above:: Postop pain Admission Indicated Admission indicated?: not indicated Admission Request Was there a request for admission?: No Disposition Plan Disposition Plan: Discharge Discharge Attestation Discharge Attestation: The patient and all family members were given an opportunity to ask questions and understood the discharge instructions. Discharge instructions specifically effects, indications for sooner follow up or return to the emergency department, and the expected course of current diagnosis. Patient condition: Stable Discharge Plan Plan Patient Disposition: HOME (Self Care) Patient condition on transfer: Stable Prescriptions/Referrals Prescriptions/Med Rec: No Action docusate sodium [Colace] 100 mg capsule 100 mg PO BID Qty: 30 0RF ibuprofen 600 mg tablet 600 mg PO Q8H PRN (Reason: pain (scale score 4-6)) Qty: 15 0RF hydrocodone-acetaminophen 5-325 mg tablet 1 tab PO Q6H MDD 4 PRN (Reason: pain (scale score 7-10)) Qty: 15 0RF Referrals: Darnell Patel MD [Primary Care Provider] - In 1 week Problem List Clinical Impression: Post-op pain Patient/Caregiver Discharge Instructions Discharge Activity: activity as tolerated Education Materials: Managing Post-Op Pain at Home Additional Instructions: It is very common to experience right shoulder pain status post your surgery. Important that you ambulate frequently to expel that air. Take your medication as directed. Follow-up with your primary doctor tomorrow. Repeat appointment with your general surgery. Return to the emergency department this any worsening symptoms any condition. Print Language: [place] Stand Alone Forms: [facility] Award Info., Patient Portal Info Letter PA/SORAIDA Supervising Physician NIRAV/SORAIDA Supervising Physician: Dr. Smith
[2024-06-14] MEDS: CYCLObenzaPRINE 5 MG TABLET PO (20:44)
[2024-06-14] MEDS: HYDROcodone/APAP 5/325 TABLET 1 TAB PO (20:45)
[2024-06-14 21:56] VITALS: BP 104/69; PULSE 75; RESP 18; TEMP 36.7; O2SAT 100
== END 2024-06-14 22:31 | disposition home or self-care (01) ==
PROVIDERS: Emergency Provider Emergency Medicine; PCP Family Medicine
DX: G89.18 Other acute postprocedural pain (principal); M25.511 Pain in right shoulder
CPT/HCPCS: 71046; 99283; A9270

== ENCOUNTER 2024-10-27 21:21 | Emergency (ER) | payer MEDICAID, SELFPAY ==
[2024-10-27 21:24] VITALS: BMI 40.2
[2024-10-27 22:04] VITALS: BP 106/71; PULSE 105; RESP 18; TEMP 37.3; O2SAT 99
--- NOTE | 2024-10-27 22:47 | XR_ITS ---
Examination: PA lateral chest 2 views Technique portable upright PA and lateral chest 2 views Date and time: October 27, 2024 1108 hours INDICATION: Shortness of breath chest pain today FINDINGS: Normal heart size Lungs are clear. The osseous structures are intact IMPRESSION: No active disease
--- NOTE | 2024-10-27 22:48 | EDNOTE_ITS ---
ED General RME/HPI General Chief complaint: General Adult/Misc Complain Stated complaint: SOB,HEADACHE,N/V Time Seen by Provider: 10/27/24 22:24 Arrival date/time: 10/27/24 21:21 RME / HPI RME / HPI narrative: 29-year-old female presents to the ED with a 1 day complaint of headache, dizziness, nausea and vomiting X1, and feeling feverish. Unknown temperature at home. She denies any runny nose, nasal congestion, ear pain or sore throat. She denies any cough. She denies any dysuria or frequency. She denies any abdominal pain. Related Data Previous Rx's ?Medication ?Instructions ?Recorded docusate sodium 100 mg capsule 100 mg PO BID #30 caps 06/12/24 (Colace) hydrocodone 5 mg-acetaminophen 325 1 tab PO Q6H PRN pa in (scale score 06/12/24 mg tablet 7-10) #15 tabs ibuprofen 600 mg tablet 600 mg PO Q8H PRN pain (scal e 06/12/24 score 4-6) #15 tabs Allergies Allergy/AdvReac Type Severity Reaction Status Date / Time No Known Allergies Allergy Unknown Verified 10/27/24 21:23 Review of Systems Review of Systems Systems Reviewed: All systems reviewed, normal except as documented Past Medical History Past Medical History NEUROLOGIC: Negative Neurological Disorders or Seizures CARDIAC: Negative Cardiac Disorders or Congestive Heart Failure RESPIRATORY: Negative Chronic Obstructive Pulmonary Disease (COPD) GASTROINTESTINAL: Positive Gastrointestinal Disorders, Gall Bladder Disease and Obesity; Negative Hepatitis or Colorectal Cancer GENITOURINARY: Negative Genitourinary Disorders, Renal Disease or Prostate Cancer REPRODUCTIVE: Positive Previous Pregnancies; Negative Breast Cancer or Testicular Cancer MUSCULOSKELETAL: Negative Musculoskeletal Disorders or Bone Cancer ENDOCRINE: Negative Endocrine Disorders, Diabetes Mellitus Type 1 or Diabetes Mellitus Type 2 HEMATOLOGIC: Negative Blood Disorders, Anemia, Leukemia, Hemophilia, Thalassemia, Sickle Cell Disease or Clotting Problems PSYCHO/SOCIAL: Negative Anxiety OTHER HISTORY: Negative Hospitalization, Autoimmune Disease, Down Syndrome, Developmental Delay, Shingles, Falls, Blood Transfusions, Blood Transfusion Reaction, Anesthesia Reactions, Organ Transplant, Chemotherapy, Radiation Therapy, Hyperbaric Therapy, MRSA, VRSA, Vancomycin-Resistant Enterococci, Human Immunodeficiency Virus (HIV), Chicken Pox, Measles, Mumps, Rubella (Bengali Measles), Pertussis, Clostridium Difficile, Breast Cancer, Cervical Cancer, Colorectal Cancer, Lung Cancer, Ovarian Cancer, Prostate Cancer or Testicular Cancer Family History FAMILY HISTORY: Positive Family Cardiac Disorders; Negative Family Psychiatric Problems, Family Respiratory Disorders, Family Gastrointestinal Problems, Family Cancer, Family Surgery or Family Anesthesia Reaction Surgical History SURGICAL: Positive Section (1); Negative Organ Transplant Social History SMOKING STATUS: Never smoker SUBSTANCE USE: does not use ED Exam Narrative Physical exam: Alert and oriented, 29-year-old female, no acute distress. Lungs are clear, mild tachycardia noted. Abdomen is soft nontender. No CVA tenderness. TMs and pharynx are without erythema. Neck is supple, no adenopathy. Moves all extremities well. Course Course Course Narrative: Urinalysis reveals turbid yellow urine with a specific gravity of 1.026 with trace protein, 2+ ketones, 1+ blood, negative nitrites, positive leukocyte Estrace, 10 RBCs, 44 WBCs and 1+ bacteria. Urine hCG is negative. XR chest reveals: No active disease. Orders Category Date Time Status Bedside COVID-19 Antigen Test NOW Care 10/27/24 22:47 Active Bedside Influenza A&B Antigen Test NOW Care 10/27/24 22:47 Completed XR chest 2V Stat Exams 10/27/24 22:47 Completed HCG Qualitative,Urine Stat Lab 10/27/24 23:04 Completed Urinalysis Stat Lab 10/27/24 23:04 Completed Vital Signs Vital signs: Vital Signs Temperature 99.1 F 10/27/24 22:04 Pulse Rate 105 H 10/27/24 22:04 Respiratory Rate 18 10/27/24 22:04 Blood Pressure 106/71 10/27/24 22:04 Pulse Oximetry (%) 99 10/27/24 22:04 Oxygen Delivery Method Room Air 10/27/24 22:04 Discharge Plan Plan Patient Disposition: Elopement Prescriptions/Referrals Prescriptions/Med Rec: No Action docusate sodium [Colace] 100 mg capsule 100 mg PO BID Qty: 30 0RF ibuprofen 600 mg tablet 600 mg PO Q8H PRN (Reason: pain (scale score 4-6)) Qty: 15 0RF hydrocodone-acetaminophen 5-325 mg tablet 1 tab PO Q6H MDD 4 PRN (Reason: pain (scale score 7-10)) Qty: 15 0RF Referrals: No Primary/Family,Physician [Primary Care Provider] - In 1 week Problem List Clinical Impression: Influenza Patient/Caregiver Discharge Instructions Additional Instructions: ELOPEMENT Print Language: O[place]i PA/PORTABLE TRACK CREW CHIEF Supervising Physician PA/PORTABLE TRACK CREW CHIEF Supervising Physician: Dr. Caraballo
[2024-10-27 23:27] LABS: Collection Type, Urine Clean Catch
[2024-10-27 23:35] LABS: HCG Qualitative,Urine Negative
[2024-10-27 23:50] LABS: Bacteria,Urine 1+; Bilirubin,Urine Negative (Negative); Blood,Urine 1+ (Negative); Clarity,Urine Turbid (Clear/Hazy); Color,Urine Yellow (Lt Yel-Yel); Glucose, Urine Negative (Negative); Ketones,Urine 2+ (Negative); Leukocyte Esterase,Urine Positive (Negative); Nitrite,Urine Negative (Negative); PH,Urine 6.0 (5.0-7.0); Protein,Urine Trace (Neg - Trace); RBC,Urine 10 /hpf (0-3); Specific Gravity,Urine 1.026 (1.001-1.035); Squamous Epithelial Cell,Urine 38 /hpf (0-5); Urobilinogen,Urine Negative mg/dL (0.0-1.0); WBC,Urine 44 /hpf (0-5)
--- NOTE | 2024-10-28 00:50 | PC.NURSE ---
NO ANSWER AT ER LOBBY OR OUTSIDE ER TO BE RE EVALUATED.
--- NOTE | 2024-10-28 01:01 | PC.NURSE ---
NO ANSWER AT ER LOBBY OR OUTSIDE ER TO BE RE EVALUATED.
== END 2024-10-28 01:03 | disposition left against medical advice (07) ==
PROVIDERS: Physician Assistant; Emergency Provider Emergency Medicine
DX: J11.1 Influenza due to unidentified influenza virus with other respiratory manifestations (principal); Z53.29 Procedure and treatment not carried out because of patient's decision for other reasons
CPT/HCPCS: 71046; 81001; 81025; 87400; 87811; 99283